=== PATIENT | male | born 1945 | race Caucasian/White ===

== ENCOUNTER 2016-05-15 00:26 | Emergency (ER) | payer MEDICARE ==
[~2016-05-15] VITALS: Ht 175.3 cm; Wt 113.4 kg
--- NOTE | 2016-05-15 00:26 | NUR ---
ARRIVAL 70 YEAR OLD MALE FROM WAITING ROOM TO ER #3 VIA WHEEL CHAIR WITH LEFT SIDE PAIN X 2 HOURS. HAS HISTORY OF KIDNEY STONES. DENIES ANY CARDIAC HISTORY.
--- NOTE | 2016-05-15 00:33 | NUR ---
EKG SB WITH PAC'S AT 53.
--- NOTE | 2016-05-15 00:35 | NUR ---
EDP WITH PATIENT
[2016-05-15] MEDS ORDERED: FLOMAX PO STA (00:45)
[2016-05-15] MEDS ORDERED: TORADOL IV STA (00:45)
[2016-05-15] MEDS ORDERED: LACTATED RINGERS 1,000 ML ONE (00:57)
[2016-05-15] MEDS ORDERED: FLOMAX ONE (00:58)
[2016-05-15] MEDS ORDERED: TORADOL ONE (00:58)
[2016-05-15] MEDS ORDERED: LACTATED RINGERS IV ONE (01:00)
[2016-05-15 01:07] LABS: BASOPHIL # 0.1 10^3/uL (0.0-0.1); BASOPHIL % 0.7 % (0.0-0.2); EOSINOPHIL # 0.1 10^3/uL (0.0-0.2); EOSINOPHIL % 1.3 % (0.0-5.0); HEMATOCRIT 43.1 % (37.0-53.0); HEMOGLOBIN 14.6 g/dL (13.9-16.3); LYMPHOCYTES # 2.6 10^3/uL (1.0-4.8); MEAN CELL HGB 29.3 pg (26-34); MEAN CELL HGB CONCENTRATION 33.9 g/dL (33-37); MEAN CORP VOLUME 86.4 fL (78-100); MEAN PLATELET VOLUME 10.3 fL (7.8-11.0); NEUTROPHIL # 4.9 10^3/uL (1.8-7.7); NEUTROPHILS % 56.9 % (41.0-85.0); RED BLOOD CELL 4.99 10^6/uL (4.50-5.90); RED CELL DISTRIBUTION WIDTH 14.2 % (11.5-14.5); WHITE BLOOD CELL 8.6 10^3/uL (4.5-11.0)
--- NOTE | 2016-05-15 01:14 | NUR ---
IVF LACTATED RINGERS 1L INFUSING VIA GRAVITY
[2016-05-15 01:21] LABS: ALANINE AMINOTRANSFERASE 19 U/L (12-78); ALBUMIN 3.8 g/dL (3.4-5.0); ALKALINE PHOSPHATASE 52 U/L (50-136); ANION GAP 12.9; ASPARTATE AMINO TRANSFERASE 16 U/L (0-35); CALCIUM 9.4 mg/dL (8.4-10.5); CARBON DIOXIDE 25.2 mmol/L (20.0-32); CREATININE SERUM 1.57 mg/dL (0.59-1.40); GLUCOSE 110 mg/dL (70-110); LIPASE 238 U/L (114-286)
--- NOTE | 2016-05-15 01:26 | DIREP ---
PROCEDURE:CT ABD/PELVIS WITHOUT CONTRAST TECHNIQUE:No oral contrast was given. Axial cuts were obtained from the dome of the diaphragm to the ischial tuberosities. No intravenous contrast was given. The images were viewed at lung and soft tissue settings. Sagittal and coronal reconstructions are provided. COMPARISON:None. INDICATIONS:L SIDE PAIN FINDINGS: LOWER CHEST:No infiltrate or pleural effusion. LIVER:Normal. BILIARY:No gallstones or biliary duct dilatation. PANCREAS:Normal. SPLEEN:Normal. URINARY TRACT:Left ureteral stone, 0.6 CM, at the level of L4 causing moderate left hydronephrosis and inflammatory stranding. No perinephric abscess. No renal calculi. Unremarkable urinary bladder. ADRENALS:Normal. AORTA/VASCULAR:Aortoiliac calcification without dilatation. RETROPERITONEUM:Normal. BOWEL/MESENTERY:No obstruction, inflammatory changes, free fluid or air. Nonvisualized appendix. ABDOMINAL WALL:Normal. PELVIS:Normal. BONES:Thoracolumbar disc degenerative changes. OTHER:Normal. CONCLUSION:0.6 CM left ureteral stone causing moderate left hydronephrosis. Dictated by: Marcia Rivera MD on 05/15/2016 at 01:20 AM
--- NOTE | 2016-05-15 01:40 | NUR ---
UA URINE SPECIMEN TO LAB
[2016-05-15 01:41] LABS: BILIRUBIN,URINE NEGATIVE (NEGATIVE); PH,URINE 6 (5.0-6.0); UROBILINOGEN,URINE NORMAL (NEGATIVE)
--- NOTE | 2016-05-15 01:50 | ER.PDOC ---
General Chief Complaint: Abdomen Pain Stated Complaint: LEFT SIDE PAIN Time seen by MD: 00:30 Source: patient History of Present Illness Initial Comments left flank pain about 2 hours ago. Timing/Duration: 1-3 hours Severity/Quality: moderate Radiation: no radiation Exacerbated by: nothing Relieved By: nothing Allergies: Coded Allergies: No Known Allergies (Unverified , 05/15/16) Vital Signs First Vital Signs Date Time Temp Pulse Resp B/P Pulse Ox O2 Delivery O2 Flow Rate FiO2 05/15/16 00:30 97.4 55 18 116/77 95 Last Vital Signs Date Time Temp Pulse Resp B/P Pulse Ox O2 Delivery O2 Flow Rate FiO2 05/15/16 01:30 62 18 115/69 95 05/15/16 01:29 97.4 Past Medical History Medical History: high cholesterol, hypertension, other Surgical History: neck Social History Smoking: non-smoker Alcohol Use: none Drug Use: none Constitutional: no symptoms reported EENTM: no symptoms reported Respiratory: no symptoms reported Cardiovascular: no symptoms reported Gastrointestinal: no symptoms reported Musculoskeletal: no symptoms reported Skin: no symptoms reported Psychiatric/Neurological: no symptoms reported Physical Exam General Appearance: No Apparent Distress, WD/WN HEENT: PERRL/EOMI Neck: Non-Tender Respiratory: chest non-tender, lungs clear, normal breath sounds Cardiovascular: Normal Peripheral Pulses, Regular Rate, Rhythm, No Edema Gastrointestinal: Normal Bowel Sounds, Non Tender Back: CVA Tenderness (L) Extremities: Normal Range of Motion, Non-Tender Neurologic/Psychiatric: No Motor/Sensory Deficits Results/Orders Results/Orders Laboratory Tests Test 05/15/16 00:58 White Blood Count 8.610^3/uL (4.5-11.0) Red Blood Count 4.9910^6/uL (4.50-5.90) Hemoglobin 14.6g/dL (13.9-16.3) Hematocrit 43.1% (37.0-53.0) Mean Corpuscular Volume 86.4fL (78-100) Mean Corpuscular Hemoglobin 29.3pg (26-34) Mean Corpuscular Hemoglobin Concent 33.9g/dL (33-37) Red Cell Distribution Width 14.2% (11.5-14.5) Platelet Count 63472^3/uL (150-400) Mean Platelet Volume 10.3fL (7.8-11.0) Neutrophils (%) (Auto) 56.9% (41.0-85.0) Lymphocytes (%) (Auto) 30.0% (24.0-44.0) Monocytes (%) (Auto) 11.0% (5.0-12.0) Neutrophils # (Auto) 4.910^3/uL (1.8-7.7) Lymphocytes # (Auto) 2.610^3/uL (1.0-4.8) Monocytes # (Auto) 1.010^3/uL (0.3-0.8) Absolute Immature Granulocyte (auto 0.0110^3 u/L (0-2) Eosinophils % 1.3% (0.0-5.0) Basophils % 0.7% (0.0-0.2) Basophils # 0.110^3/uL (0.0-0.1) Eosinophil Count 0.110^3/uL (0.0-0.2) Sodium Level 140mmol/L (132-145) Potassium Level 4.1mmol/L (3.6-5.2) Chloride Level 106.0mmol/L (96-109) Carbon Dioxide Level 25.2mmol/L (20.0-32) Anion Gap 12.9 Blood Urea Nitrogen 27mg/dL (7-18) Creatinine 1.57mg/dL (0.59-1.40) Estimat Glomerular Filtration Rate >60 BUN/Creatinine Ratio 17.0 Glucose Level 110mg/dL (70-110) Calculated Osmolality 295.6 Calcium Level 9.4mg/dL (8.4-10.5) Total Bilirubin 0.3mg/dL (0.2-1.0) Aspartate Amino Transf (AST/SGOT) 16U/L (0-35) Alanine Aminotransferase (ALT/SGPT) 19U/L (12-78) Alkaline Phosphatase 52U/L (50-136) Total Protein 7.0g/dL (6.4-8.2) Albumin 3.8g/dL (3.4-5.0) Globulin 3.2 Lipase 238U/L (114-286) Percent Immature Gran (Cell Imm) 0.10% (0.00-0.50) Administered Medications Medications (Trade) Dose Ordered Sig/Raghavendra Route PRN Reason Start Time Stop Time Status Last Admin Dose Admin Ketorolac Tromethamine (Toradol) 30 mg STAT STAT IV 05/15/16 00:45 05/15/16 00:49 DC 05/15/16 01:02 Tamsulosin HCl (Flomax) 0.4 mg STAT STAT PO 05/15/16 00:45 05/15/16 00:49 DC 05/15/16 01:02 Progress Progress pt reports he feels much better at 0150. really wants to go. Course Blood Pressure Systolic: 115 Blood Pressure Diastolic: 69 Blood Pressure Mean: 84 Departure Time of Disposition: 01:50 Disposition: 01 HOME, SELF-CARE Impression: Primary Impression: Kidney stone Condition: Improved Referrals: PCP,UNKNOWN (PCP) PRIMARY CARE PROVIDER RAÚL PENALOZA MD May 15, 2016 01:50
[2016-05-15 01:51] LABS: APPEARANCE,URINE CLEAR (CLEAR); UA COLOR YELLOW (YELLOW); WBC,URINE 0-2 WBC/HPF (0-2)
[2016-05-15 02:08] VITALS: BP 131/68
[2016-05-17] MEDS ORDERED: HYDR-3101 PO (16:34)
[2016-05-18] MEDS ORDERED: CIPR500T86 PO (12:00)
== END 2016-05-15 02:05 | disposition home or self-care (01) ==
LOC: ER 00:26
DX: N20.0 Calculus of kidney (principal); E78.00 Pure hypercholesterolemia, unspecified; I10 Essential (primary) hypertension
CPT/HCPCS: 36415; 74176; 80053; 81000; 83690; 85025; 93005; 96374; 99284; J1885; J7120

== ENCOUNTER 2016-05-18 04:36 | Day surgery (SDC) | payer MEDICARE, OTHER ==
[2016-05-17 16:30] VITALS: BP 148/97
[2016-05-17 17:33] LABS: INR 1.1; PARTIAL THROMBOPLASTIN TIME 26.9 SEC (24.67-30.72); PROTHROMBIN PROTIME 11.3 SEC (9.8-11.9)
[~2016-05-18] VITALS: Ht 172.7 cm; Wt 117.0 kg
[2016-05-18] VITALS (8 sets, daily range): BP systolic 130–149; BP diastolic 53–93
[~2016-05-18 04:36] MED LIST: HYDR-3101 PO
[2016-05-18] MEDS ORDERED: LASIX ONE (04:44)
[2016-05-18] MEDS ORDERED: LACTATED RINGERS 1,000 ML ONE (04:55)
[2016-05-18] MEDS ORDERED: LEVAQUIN 100 ML IV ONE ×2 (04:58→07:00)
[2016-05-18] MEDS ORDERED: LASIX IV ONE (07:00)
[2016-05-18] MEDS ORDERED: LACTATED RINGERS 1,000 ML IV SCH ×2 (07:00→12:00)
[2016-05-18] MEDS ORDERED: XYLOCAINE ONE (07:19)
[2016-05-18] MEDS ORDERED: SUBLIMAZE ONE ×2 (07:19→09:41)
[2016-05-18] MEDS ORDERED: ZOFRAN ONE ×2 (07:19→09:41)
[2016-05-18] MEDS ORDERED: DIPRIVAN IV ONE (07:19)
[2016-05-18 09:14] LABS: INR 1.1; PARTIAL THROMBOPLASTIN TIME 26.4 SEC (24.67-30.72); PROTHROMBIN PROTIME 11.6 SEC (9.8-11.9)
[2016-05-18] MEDS ORDERED: SODIUM CHLORIDE IR ONE ×2 (10:04)
[2016-05-18] MEDS ORDERED: CIPR500T86 PO (12:00)
[2016-05-18] MEDS ORDERED: LASIX IV SCH (12:00)
[2016-05-18] MEDS ORDERED: NORCO 7.5MG PO PRN (12:00)
--- NOTE | 2016-05-18 14:18 | DIREP ---
PROCEDURE:XRAY FLUOROSCOPY COMPARISON:[facility], CT, CT ABD/PELVIS W/O, 05/15/2016, 00:54 AM. INDICATIONS:CYSTO, RETROGRADE, STENT INSERTION; 55.9 SECOND FLUORO TIME; 17.63 mGy TOTAL DOSE TECHNIQUE:Retrograde urography of the left side was performed. Fluoroscopy time was 55.9 seconds. FINDINGS:Injection of contrast on the left side shows no obvious dilatation or filling defects. Placement of a double J stent on the left side. Phleboliths in the pelvis. CONCLUSION:Placement of a double J stent on the left side. Dictated by: Keny Anton MD on 05/18/2016 at 02:16 PM
--- NOTE | 2016-05-18 14:37 | OPH ---
DATE OF SURGERY: 05/18/2016 PREOPERATIVE DIAGNOSIS: Calculus, right ureter with hydronephrosis. FINAL DIAGNOSIS: Calculus, right ureter with hydronephrosis. PROCEDURES: Cystoscopy, right retrograde, right ureteroscopy with stone manipulation and insertion of left ureteral stent and left extracorporeal shockwave lithotripsy to the stones in the left ureter. DESCRIPTION OF PROCEDURE: The patient was brought initially to the cystoscopy room and was put in supine position on the cystoscopy table. After the patient was given a satisfactory and adequate LMA general anesthesia, the patient was placed in the lithotomy position. The genitalia was then prepped and draped aseptically in the usual manner. First, a 22-Kyrgyz cystoscope was inserted per urethra up to the bladder. With the use of the right angle lens, the bladder was visualized. There was some congestion noted in the bladder wall. No tumor, no calculi seen. Both right ureteral orifices were normal. The left one was congested. Initial left retrograde by putting a 7-Kyrgyz ureteral catheter in the left orifice and injected with Isovue dye revealed a stone causing obstruction and the distal ureter with hydroureteronephrosis. Initial insertion of guidewire in the left orifice failed. So the cystoscopy instrument was removed and a 7-Kyrgyz ureteroscope was then inserted per urethra up to the bladder and inserted to the left distal orifice of the ureter and was able to insert a guidewire up to the ureteroscope with stone manipulation all the way to the left renal pelvis. After the guidewire was inserted, a 6-Kyrgyz double-J ureteral stent was inserted through the guidewire and was inserted from the bladder orifice all the way to the left kidney. After this was done, the guidewire was removed. The bladder was emptied with fluid. The procedure at this time was then completed. At this time, the patient was put back in supine position and was transferred to the lithotripsy room. the initial KUB and ultrasound was initially done to localize the stone in the left distal ureter. After localization with the use a Dornier Compact Delta II Lithotripter a total of 1500 shockwaves were delivered to the stone in the left distal ureter under ultrasound guidance. After fragmentation of the stone is noted in the ultrasound, the procedure was terminated. The patient was then awakened and was transferred to the recovery room in stable condition. Chicho Mckinley MD DR: Quang JOB# [id number]
== END 2016-05-18 12:35 | disposition home or self-care (01) ==
LOC: SDC 04:36
PROVIDERS: ATTEND Urology
DX: N13.2 Hydronephrosis with renal and ureteral calculous obstruction (principal); I10 Essential (primary) hypertension; E78.00 Pure hypercholesterolemia, unspecified; I25.10 Atherosclerotic heart disease of native coronary artery without angina pectoris; E66.9 Obesity, unspecified; Z68.33 Body mass index [BMI] 33.0-33.9, adult
CPT/HCPCS: 36415 ×2; 50590; 52352; 74420; 76000; 85610 ×2; 85730 ×2; 93005; J1956; J2405 ×2; J3010 ×2; J3490; J7030; J7120; Q9966; C1769; C2617; J1940

== ENCOUNTER 2016-05-24 00:24 | Day surgery (SDC) | payer MEDICARE, OTHER ==
[~2016-05-24] VITALS: Ht 172.7 cm; Wt 117.0 kg
[~2016-05-24 00:24] MED LIST changes: +CIPR500T86 PO
[2016-05-24] MEDS ORDERED: LACTATED RINGERS 1,000 ML ONE ×2 (05:03→08:16)
[2016-05-24] MEDS ORDERED: LEVAQUIN 100 ML IV ONE ×2 (05:04→06:00)
[2016-05-24] MEDS ORDERED: LACTATED RINGERS 1,000 ML IV SCH (06:00)
[2016-05-24 06:13] VITALS: BP 143/85
[2016-05-24] MEDS ORDERED: VERSED ONE (06:15)
[2016-05-24] MEDS ORDERED: DIPRIVAN IV ONE (06:16)
[2016-05-24] MEDS ORDERED: ZOFRAN ONE (06:16)
[2016-05-24] MEDS ORDERED: SUBLIMAZE ONE (06:17)
[2016-05-24] MEDS ORDERED: SODIUM CHLORIDE IR ONE ×2 (07:25)
[2016-05-24 08:45] VITALS: BP 120/82
[2016-05-24 08:50] VITALS: BP 120/82
[2016-05-24 08:55] VITALS: BP 122/72
[2016-05-24 09:00] VITALS: BP_SYST 108; BP_SYST 114; BP_DIAS 67; BP_DIAS 69
[2016-05-24 09:15] VITALS: BP 127/76
--- NOTE | 2016-05-24 12:02 | OPH ---
DATE OF SURGERY: 05/24/2016 PREOPERATIVE DIAGNOSIS: Calculus, left lower ureter with stent. FINAL DIAGNOSIS: Calculus, left lower ureter with stent. PROCEDURES: Cystoscopy, removal of left ureteral stent, ureteroscopy and basket stone extraction. DESCRIPTION OF PROCEDURE: The patient was brought to the cystoscopy room and was put in supine position on the cystoscopy table. After the patient was given a satisfactory and adequate LMA general anesthesia, the patient was placed in lithotomy position. The genitalia was then prepped and draped aseptically in the usual manner. First, a ____-Cambodian cystoscope was inserted per urethra up to the bladder. With the use of the right angle lens, the bladder was visualized. There was some congestion noted with some blood clot around the bladder from the area where the left orifice with stent was present. The left ureteral stent was then removed and exchanged with a Glidewire to the kidney and then after this was done, the cystoscope was removed and a 7-Cambodian semirigid ureteroscope was inserted into the bladder ____ the left orifice to the mid ureter and then upon visualization there was still a stone noted in the left lower ureter. Basket stone extraction was then performed. After extraction of the stone, the rest of the ureter was inspected and there was no more evidence of any obstruction or stone noted. So, guidewire was then removed including the ureteroscope. The ____scope was reinserted back to the bladder and the bladder was emptied with fluid. The cystoscope was then removed. Procedure was terminated. The patient was awakened, was transferred to the recovery room in stable condition. Chicho Mckinley MD DR: JING/carie JOB# [id number]
--- NOTE | 2016-05-24 14:01 | DIREP ---
PROCEDURE:XRAY FLUOROSCOPY COMPARISON:[facility], , XRAY FLUOROSCOPY, 05/18/2016, 08:54 AM. INDICATIONS:CYSTO, STENT REMOVAL TECHNIQUE:Fluoroscopic assistance left ureteral stent removal. 59.1 seconds fluoroscopy time. FINDINGS:5 fluoroscopic images demonstrate removal of the left ureter. CONCLUSION:Fluoroscopic assistance left ureteral stent removal. Dictated by: Khoi Jose M.D. on 05/24/2016 at 01:57 PM
== END 2016-05-24 09:20 | disposition home or self-care (01) ==
LOC: SDC 00:24
PROVIDERS: ATTEND Urology
DX: N20.0 Calculus of kidney (principal); Z46.6 Encounter for fitting and adjustment of urinary device; I25.10 Atherosclerotic heart disease of native coronary artery without angina pectoris; I10 Essential (primary) hypertension; E66.9 Obesity, unspecified; Z68.33 Body mass index [BMI] 33.0-33.9, adult; E78.00 Pure hypercholesterolemia, unspecified
CPT/HCPCS: 52352; 76000; J1956; J2250; J2405; J3010; J3490; J7030; J7120 ×2; 36415; C1769; C1894

== ENCOUNTER → 2016-05-31 | Outpatient (CLI) | payer MEDICARE, OTHER | END | disposition home or self-care (01) | LOC: LAB 18:44 | PROVIDERS: ATTEND Urology | DX: R35.1 Nocturia (principal) | CPT/HCPCS: 84153 ==

== ENCOUNTER 2016-10-04 18:06 | Emergency (ER) | payer MEDICARE, OTHER ==
[~2016-10-04] VITALS: Ht 175.3 cm; Wt 113.4 kg
--- NOTE | 2016-10-04 18:39 | NUR ---
TAKES MULTIVITAMIN AND VITAMIN E PT ALERT AND TALKATIVE
--- NOTE | 2016-10-04 18:46 | ER.PDOC ---
General Chief Complaint: Extremities Stated Complaint: ARM PAIN Time seen by MD: 18:39 Source: patient Exam Limitations: no limitations History of Present Illness Initial Comments feeling weak Left arm cramp Timing/Duration: 1-3 hours Severity/Quality: mild Radiation: no radiation Activities at Onset: activity/exertion Prior CP/Workup: No Prior Chest Pain Nitro Today/Relief: No Nitro Taken Today Aspirin Today: No Aspirin Today Associated Symptoms: denies symptoms Allergies: Coded Allergies: No Known Allergies (Unverified , 10/04/16) Home Meds Active Scripts Ciprofloxacin Hcl (CIPRO) 500 Mg Tablet, 500 MG PO BID, #14 Prov:KADE GUILLEN MD 05/18/16 Reported Medications Hydrocodone Bit/Acetaminophen (NORCO 7.5-325) 1 Each Tablet, 1 TAB PO Q4, #120 TAB 05/17/16 Past Medical History Surgical History: neck Family History Significant Family History: no pertinent family hx Social History Smoking: non-smoker Alcohol Use: none Drug Use: none Constitutional: denies fever EENTM: denies eye pain Respiratory: denies cough Cardiovascular: denies chest pain Genitourinary: denies burning Psychiatric/Neurological: anxiety All Other Systems: Reviewed and Negative Physical Exam General Appearance: Anxious HEENT: PERRL/EOMI, Normal ENT Inspection, TMs Normal, Pharynx Normal Neck: Non-Tender, Full Range of Motion, Supple, Normal Inspection Respiratory: chest non-tender, lungs clear, normal breath sounds, no respiratory distress, no accessory muscle use Cardiovascular: Normal Peripheral Pulses, Regular Rate, Rhythm, No Edema, No Gallop, No JVD, No Murmur Extremities: Normal Range of Motion, Non-Tender, Normal Inspection, No Pedal Edema, No Calf Tenderness, Normal Capillary Refill Neurologic/Psychiatric: roller man II-XII NML as Tested, No Motor/Sensory Deficits, Alert, Normal Mood/Affect, Oriented x 3 Skin: Normal Color, Warm/Dry Lymphatic: No Adenopathy Progress Progress cardiac enzymes neg EKG/XRAY/CT/US EKG Comments: 57 sinus cricket Departure Time of Disposition: 20:11 Disposition: 01 HOME, SELF-CARE Impression: Primary Impression: Dehydration Condition: Stable Referrals: PCP,UNKNOWN (PCP) PRIMARY CARE PROVIDER TONY CANTOR Dr., MD Oct 04, 2016 18:46
[2016-10-04] MEDS ORDERED: NS 1000ML 1,000 ML IV ONE (19:00)
[2016-10-04 19:09] LABS: BASOPHIL % 0.5 % (0.0-0.2); EOSINOPHIL # 0.1 10^3/uL (0.0-0.2); HEMOGLOBIN 14.3 g/dL (13.9-16.3); LYMPHOCYTES % 39.1 % (24.0-44.0); MEAN CELL HGB 28.8 pg (26-34); MEAN CELL HGB CONCENTRATION 33.2 g/dL (33-37); MEAN CORP VOLUME 86.9 fL (78-100); MEAN PLATELET VOLUME 10.1 fL (7.8-11.0); MONOCYTES # 0.9 10^3/uL (0.3-0.8); MONOCYTES % 11.4 % (5.0-12.0); NEUTROPHIL # 3.6 10^3/uL (1.8-7.7); NEUTROPHILS % 47.7 % (41.0-85.0); NUCLEATED RED BLOOD CELLS 0 % (0-0); PLATELET COUNT 219 10^3/uL (150-400); RED CELL DISTRIBUTION WIDTH 14.3 % (11.5-14.5); WHITE BLOOD CELL 7.6 10^3/uL (4.5-11.0)
[2016-10-04] MEDS ORDERED: NS 1000ML 1,000 ML ONE (19:19)
[2016-10-04 19:32] LABS: ALANINE AMINOTRANSFERASE 26 U/L (12-78); ALKALINE PHOSPHATASE 50 U/L (50-136); ASPARTATE AMINO TRANSFERASE 18 U/L (0-35); CALCIUM 9.9 mg/dL (8.4-10.5); CARBON DIOXIDE 23.7 mmol/L (20.0-32); GLUCOSE 94 mg/dL (70-110)
[2016-10-04 20:27] VITALS: BP 145/92
== END 2016-10-04 20:27 | disposition home or self-care (01) ==
LOC: ER 18:06
DX: E86.0 Dehydration (principal); F41.9 Anxiety disorder, unspecified; Z79.899 Other long term (current) drug therapy
CPT/HCPCS: 36415; 80053; 82550; 82553; 84484; 85025; 93005; 96360; 99285; J7030

== ENCOUNTER 2017-04-09 12:00 | Emergency (ER) | payer MEDICARE, OTHER ==
[~2017-04-09] VITALS: Ht 175.3 cm; Wt 104.3 kg
[2017-04-09 12:23] VITALS: BP 146/93
[2017-04-09] MEDS ORDERED: LIDOCAINE 1% VIAL ONE (12:43)
--- NOTE | 2017-04-09 12:47 | NUR ---
DR YOST DOCTOR IN ROOM
[2017-04-09] MEDS ORDERED: TRIPLE ANTIBIOTIC OINTMENT TP ONE (12:49)
--- NOTE | 2017-04-09 13:06 | ER.PDOC ---
General Chief Complaint: Skin Rash/Abscess Stated Complaint: SORE ON HEAD Time seen by MD: 13:02 Source: patient Exam Limitations: no limitations History of Present Illness Initial Comments Abscess on head for 1 week Severity: moderate Quality: painful Allergies: Coded Allergies: No Known Allergies (Unverified , 10/04/16) Home Meds Active Scripts Ciprofloxacin Hcl (CIPRO) 500 Mg Tablet, 500 MG PO BID, #14 Prov:KADE GUILLEN MD 05/18/16 Reported Medications Hydrocodone Bit/Acetaminophen (NORCO 7.5-325) 1 Each Tablet, 1 TAB PO Q4, #120 TAB 05/17/16 Past Medical History Medical History: other Surgical History: neck Social History Smoking: non-smoker Alcohol Use: none Drug Use: none Constitutional: no symptoms reported EENTM: no symptoms reported Respiratory: no symptoms reported Cardiovascular: no symptoms reported Gastrointestinal: no symptoms reported Skin: see HPI All Other Systems: Reviewed and Negative Physical Exam General Appearance: alert, no distress Skin: abscess, tender indurated area Location: other (scalp) With: tenderness, swelling 1 - swollen and tender Extremities: non-tender EENT: eyes nml inspection, lips/gums nml, pharynx nml Neck: trachea midline, no swelling Respiratory: no resp. distress, breath sounds nml CVS: reg. rate & rhythm, heart sounds nml Abdomen: non-tender, no organomegaly NEURO/PSYCH: oriented x 3, CN's nml as tested, motor nml, sensation nml, mood/ affect nml Incision and Drainage Incision and Drainage : Site: scalp Blade Size: 11 I & D Procedure: betadine prep, probe/break up loculation, irrigated cavity w/saline, culture/gram stain Departure Time of Disposition: 13:05 Disposition: 01 HOME, SELF-CARE Impression: Primary Impression: Abscess Condition: Stable Referrals: MARCIN RODARTE MD (PCP) PRIMARY CARE PROVIDER Additional Instructions: Clean wound daily with soap and water and apply Neosporin Bactrim DS F/U with your PCP in 2-3 days Duration or Time Spent with Pa: 50 mins RITIKA COLE MD Apr 09, 2017 13:06
[2017-04-09 13:12] VITALS: BP 133/87
[2017-04-09 13:29] VITALS: BP 133/87
== END 2017-04-09 13:12 | disposition home or self-care (01) ==
LOC: ER 12:00
DX: L02.811 Cutaneous abscess of head [any part, except face] (principal); Z79.899 Other long term (current) drug therapy
CPT/HCPCS: 10060; 87070; 87077; 87186; 99284; J2001